=== PATIENT | female | born 1960 | race Caucasian/White ===

== ENCOUNTER 2017-08-25 03:31 | Observation (INO) | payer BC ==
[~2017-08-25] VITALS: Ht 170.2 cm; Wt 97.0 kg
[~2017-08-25 03:31] MED LIST: ADLT ASA LOW81 MG PO; ADULT ASPIRIN L81 MG PO; AMLODIPINE5 MG PO; AMOX/K CLAV875 M1 PO; AMOXICILLIN/CL875 MG PO; AUGMENTIN500TAB PO; AUGMENTIN875TAB OR; AUGMENTIN875TAB PO; BENZONATATE200 MG PO; CALCIUM600 M1 PO; CARAFATE1 GM PO; CHANTIX CONTINUI1 MG PO; CHANTIX STARTIN0.5 & PO; CIPRODEX1 ML OT; CORTISPORIN OTI10 ML AD; CORTISPORIN OTI10 ML AS; DIFLUCAN150 MG PO; DOXYCYCL HYC100 MG PO; FENOFIBRATE160 MG OR; FENOFIBRATE54 MG PO; FISH OIL1000 MG PO; FLONASE NASAL50 MCG; FOSTEUM PO; HYZAAR1 TA1 OR; HYZAAR1 TA2 PO; KEFLEX500 MG PO; LOPRESSOR 550 MG/TAB PO; LORTAB5 OR; MEDDOSEPAK PO; METFORMIN HCL1000 MG PO; METFORMIN850 MG PO; METOPROL TAR50 MG OR; METOPROL TAR50 MG PO; NORVASC2.5 M1 PO; OMEGA 3550 MG PO; OMEPRAZOLE20 MG PO; OMEPRAZOLE40 MG PO; PREDNISONE20 MG PO; RANITIDINE150 M1 PO; TOBRAMYCIN0.3 % OP; TRICOR145 MG PO; TRICOR48 MG PO; [UNRECOGNIZED DRUG - OTHER] PO
--- NOTE | 2017-08-25 03:33 | NUR ---
PT. TO ROOM 10 VIA AMBULATORYM WITH C/O CP AND FEELING LIKE HER HEART IS RACING. PT. PLACED ON SENIOR PIPING DESIGNER SHOWING SVT RATE 160'S. MD AT BEDSIDE. 0348 ADENOSINE 6 MG IVP GIVEN PER MD ORDER.
--- NOTE | 2017-08-25 03:50 | NUR ---
SCREW MACHINE OPERATOR SWISS TYPE NOW SHOWING ST. PT. STATES, " I FEEL BETTER NOW."
[2017-08-25 04:03] LABS: HEMOGLOBIN 16.2 g/dl (12.0-16.0); IMMATURE GRANULOCYTES 0.4 % (0.0-1.0); MEAN CELL VOLUME 83.2 fL CALC (80.0-100.0); MEAN CORPUSCULAR HGB CONC 32.4 g/L CALC (32.0-36.0); NEUT# 10.88 thou/uL (2.00-7.15); RED BLOOD COUNT 6.01 mill/uL (4.20-5.60); RED CELL DISTRI WIDTH 13.5 % (11.5-15.5)
[2017-08-25 04:04] LABS: URINE BILIRUBIN - DIPSTICK NEGATIVE (NEGATIVE); URINE BLOOD DIPSTICK TRACE-INTACT (NEGATIVE); URINE COLOR YELLOW; URINE GLUCOSE - DIPSTICK NEGATIVE (NEGATIVE); URINE KETONE NEGATIVE (NEGATIVE); URINE LEUK ESTERASE NEGATIVE (NEGATIVE); URINE NITRITE - DIPSTICK NEGATIVE (Negative); URINE PROTEIN - DIPSTICK NEGATIVE (NEG-TRACE); URINE SPECIFIC GRAVITY <=1.005; URINE UROBILINOGEN - DIPSTICK 0.2 E.U./dL (0.2)
[2017-08-25 04:05] LABS: URINE CLARITY CLEAR
[2017-08-25 04:09] LABS: BARBITURATES NEGATIVE (NEGATIVE); COCAINE NEGATIVE (NEGATIVE); METHADONE NEGATIVE (NEGATIVE); OXCYCODONE NEGATIVE (NEGATIVE); TETRAHYDROCANNABIONOL NEGATIVE (NEGATIVE); TRICYLIC ANTIDEPRESSANTS NEGATIVE (NEGATIVE)
--- NOTE | 2017-08-25 04:10 | NUR ---
po asa given as per md order.
[2017-08-25 04:12] LABS: ALKALINE PHOSPHATASE 122 u/l (38-126); ANION GAP 19 (6-22 (CALC)); BILIRUBIN, TOTAL 0.4 mg/dL (0.0-1.4); BUN 10 mg/dL (7-17); BUN/CREATININE RATIO 15 (12-20 (CALC)); CALCIUM 10.3 mg/dL (8.4-10.2); CARBON DIOXIDE 22 mmol/l (22-30); CHLORIDE 106 mmol/l (95-108); CREATININE 0.7 mg/dL (0.5-1.0); GFR > 60 ML/MIN (>=60 (CALC)); GFR FOR AFR.AMER. > 60 ML/MIN (>=60 (CALC)); GLUCOSE 156 mg/dL (65-105); LIPASE 125 u/l (23-300); POTASSIUM 3.5 mmol/l (3.5-5.1); SGOT/AST 30 u/l (14-36); SGPT/ALT 43 u/l (9-52); SODIUM 143 mmol/l (137-146)
--- NOTE | 2017-08-25 04:12 | NUR ---
PT. C/O CP AWARE.
--- NOTE | 2017-08-25 04:18 | NUR ---
IV PAIN MED AND NITROGLYCERIN OINT. GIVEN PER MD ORDER.
[2017-08-25 04:24] LABS: MYOGLOBIN 32 ng/mL (0 - 62)
--- NOTE | 2017-08-25 04:46 | NUR ---
IN ROOM TO DISCUSS CLINICAL FINDINGS WITH PT. AND , ALSO MADE PT. AWARE OF PENDING ADMISSION.
--- NOTE | 2017-08-25 04:57 | NUR ---
CP IS COMPLETLY RESOLVED OF THIS TIME.
--- NOTE | 2017-08-25 04:58 | NUR ---
Admission Note Report Given to: MARIPOSA TUTTLE Transported by: Wheelchair X Stretcher Transported with: X Nurse Transporter X Patent IV O2 X Distance Learning Coordinator
--- NOTE | 2017-08-25 04:59 | NUR ---
PT. TRANSFERED TO MS.
--- NOTE | 2017-08-25 05:10 | NUR ---
FROM ER TO MED/SURG VIA STRETCHER AND CLIENT RELATIONSHIP CONSULTANT, ON ROOM AIR, TELE IN PLACE, ACCOMPANIED BY MARGARITA EDEN RN. PT ABLE TO AMBULATE FROM STRETCHER TO STANDING SCALE, TO BRP, THEN TO BED, STEADY GAIT NOTED, VOIDED UPON ARRIVAL CLEAR YELLOW URINE, NO S/S OF DISTRESS NOTED, RESP ARE EVEN AND UNLABORED, C/O TENDER LEFT CHEST PAIN AT 1/10, NITRO PASTE TO LT UPPER CHEST, MEDICATED WITH LOPRESSOR UPON ARRIVAL, TEMP 97.7, HR 96, RR 18 EVEN AND UNLABORED, MANUAL BP 150/100 RT ARM SUPINE, WILL RECHECK IN AN HOUR, SPO2 97% ON ROOM AIR, EXPLAINED CALL CURRIE SYSTEM, SAFETY MEASURES ARE IN PLACE, EDUCATED ABOUT CARE PLAN AND MED SCHEDULE, VOICES UNDERSTANDING, CALL CURRIE AT REACH, AT BEDSIDE, HAS A 20G RAC SALINE LOCK AND FLUSHES WELL, NO REDNESS OR EDEMA NOTED. ASSESSMENT COMPLETED AT THIS TIME, SEE INTERVENTIONS FOR DETAILS. VINI HOSE & NONSKID SOCKS IN PLACE, FRESH WATER PROVIDED.
[2017-08-25 05:15] VITALS: BP 150/100
--- NOTE | 2017-08-25 06:20 | NUR ---
PT DENIES CHEST PAIN AT THIS TIME, MANUAL BP 135/70, DENIES ANY FEELING OF HEART RACING, RESP ARE EVEN AND UNLABORED, NO DISTRESS NOTED, AT BEDSIDE, NO ORDERS IN EMAR, WILL NOTIFY DR. DE LUNA. ENCOURAGED TO CALL IF NEEDED. VOICES UNDERSTANDING. SR WITH HR 79 AT THIS TIME PER BANQUET SERVER IN ER.
[2017-08-25] MEDS ORDERED: FENOFIBRATE145 MG PO (07:05)
--- NOTE | 2017-08-25 07:05 | NUR ---
REPORT RECEIVED FROM PARAG MONGE. PT SUPINE IN BED. DENIES CHEST PAIN AT THIS TIME. PLAN OF CARE DISCUSSED. REPORTING OF CONCERNS ENCOURAGED. CALL LIGHT REVIEWED AND IN REACH. PT'S AT BEDSIDE.
[2017-08-25 07:11] LABS: CHOLESTEROL HDL RATIO 4.5 (<4.4 (CALC)); HDL CHOLESTEROL 54 mg/dL (>=40); TOTAL CHOLESTEROL 246 mg/dl (0-199); TOTAL TRIGLYCERIDES 467 mg/dl (30-149); VLDL CHOLESTROL 93 mg/dl (2-49 (CALC))
[2017-08-25 07:15] VITALS: BP 124/80
[2017-08-25 07:42] LABS: TSH, 3RD GENERATION 4.25 uIU/mL (0.47 - 4.68)
--- NOTE | 2017-08-25 09:01 | NUR ---
ASSESMENT COMPLETED. PT. IS ALERT, ORIENTED, INDEPENDENT AND OBEYS COMMANDS. PT. PUPILS ARE EQUAL AND REACTIVE. FACE SYMMETRICAL AND SPEECH IS CLEAR. LUNG SOUNDS CLEAR, NO SIGNS OF RESPIRATORY DISTRESS, 02 IS 97% ON ROOM AIR. BOWEL SOUNDS X4. BRISK CAP REFILLS AND STRONG REFLEXES ON ALL EXTREMETIES. PT. HAS STRONG RADIAL AND PEDAL PULSES. NO EDEMA, KNEE HIGH VINI HOSE APPLIED TO BILATERAL LEGS. PT. SKIN IS CLEAR AND INTACT, HAS #20 GAUGE IV RAC, IV SITE IS FREE OF REDNESS AND SWELLING. BED IS IN LOWEST POSITION, SIDE RAILS UP, CALL LIGHT WITHIN REACH. PT. STATES NO CHEST PAIN AT THIS TIME, WILL CONTINUE MONITORING.
--- NOTE | 2017-08-25 10:45 | NUR ---
DR. NGO IN TO SEE PT. PLAN OF CARE UPDATED. PT STATES UNDERSTANDING. REPORTS "I JUST WANT TO GO HOME." DISCHARGE ORDER AND PROCESS REVIEWED, PT STATES UNDERSTANDING.
[2017-08-25 11:15] VITALS: BP 130/78
[2017-08-25 11:45] VITALS: BP 124/72
--- NOTE | 2017-08-25 12:10 | NUR ---
LAB IN TO DRAW TROPONIN AT THIS TIME.
[2017-08-25] MEDS ORDERED: LIPITOR10 M1 PO (14:51)
[2017-08-25] MEDS ORDERED: LOPID600 MG PO (14:51)
[2017-08-25] MEDS ORDERED: LOPRESSOR 550 MG/TAB PO (14:51)
== END 2017-08-25 15:15 | disposition home or self-care (01) | DRG 310 ==
LOC: ED 03:31 → ED-I 04:00 → ED 04:44 → MS2 04:45
PROVIDERS: Emergency Medicine; Internal Medicine; ADMIT Internal Medicine; ATTEND Internal Medicine
DX: I47.1 Supraventricular tachycardia (principal); I10 Essential (primary) hypertension; E83.42 Hypomagnesemia; E11.9 Type 2 diabetes mellitus without complications; E78.1 Pure hyperglyceridemia; E66.9 Obesity, unspecified; D72.829 Elevated white blood cell count, unspecified; K21.9 Gastro-esophageal reflux disease without esophagitis; G47.33 Obstructive sleep apnea (adult) (pediatric); R01.1 Cardiac murmur, unspecified; Z68.33 Body mass index [BMI] 33.0-33.9, adult; Z91.11 Patient's noncompliance with dietary regimen; Z79.84 Long term (current) use of oral hypoglycemic drugs; Z87.891 Personal history of nicotine dependence
CPT/HCPCS: G0378

== ENCOUNTER 2019-07-14 03:50 | Emergency (ER) | payer BC ==
[~2019-07-14] VITALS: Ht 170.2 cm; Wt 90.0 kg
[~2019-07-14 03:50] MED LIST changes: +FENOFIBRATE145 MG PO; +LIPITOR10 M1 PO; +LOPID600 MG PO
[2019-07-14] MEDS ORDERED: PANTOPRAZOLE SO40 M1 PO (04:14)
[2019-07-14] MEDS ORDERED: LOPID600 MG PO (04:14)
[2019-07-14] MEDS ORDERED: TOPROL XL50 MG PO (04:15)
[2019-07-14] MEDS ORDERED: ATORVASTATIN CA40 MG PO (04:15)
[2019-07-14] MEDS ORDERED: HYDROCHLOROT12.5 M1 PO (04:16)
[2019-07-14 04:44] LABS: IMMATURE GRANULOCYTES 0.4 % (0.0-5.0); MEAN CELL VOLUME 84.1 fL CALC (80.0-100.0); MEAN CORPUSCULAR HGB CONC 32.2 g/L CALC (32.0-36.0); NEUT# 6.98 thou/uL (2.00-7.15); RED BLOOD COUNT 4.77 mill/uL (4.20-5.60); RED CELL DISTRI WIDTH 13.9 % (11.5-15.5)
[2019-07-14 04:46] LABS: HEMATOCRIT 40.1 % (37.0-47.0); HEMOGLOBIN 12.9 g/dl (12.0-16.0)
[2019-07-14 04:47] LABS: URINE BILIRUBIN - DIPSTICK NEGATIVE (NEGATIVE); URINE BLOOD DIPSTICK NEGATIVE (NEGATIVE); URINE COLOR YELLOW; URINE GLUCOSE - DIPSTICK NEGATIVE (NEGATIVE); URINE KETONE NEGATIVE (NEGATIVE); URINE LEUK ESTERASE NEGATIVE (NEGATIVE); URINE NITRITE - DIPSTICK NEGATIVE (Negative); URINE PH 7.5 (4.5-8.0); URINE PROTEIN - DIPSTICK NEGATIVE (NEG-TRACE); URINE UROBILINOGEN - DIPSTICK 0.2 E.U./dL (0.2)
[2019-07-14 04:59] LABS: ALBUMIN 4.3 g/dL (3.2-5.0); ALKALINE PHOSPHATASE 134 u/l (38-126); AMYLASE 65 u/l (30-110); ANION GAP 11 (6-22 (CALC)); BILIRUBIN, TOTAL 0.5 mg/dL (0.0-1.4); BUN 9 mg/dL (7-17); BUN/CREATININE RATIO 17 (12-20 (CALC)); CHLORIDE 99 mmol/l (95-108); CREATININE 0.5 mg/dL (0.5-1.0); GFR > 60 ML/MIN (>=60 (CALC)); GFR FOR AFR.AMER. > 60 ML/MIN (>=60 (CALC)); LIPASE 120 u/l (23-300); POTASSIUM 3.5 mmol/l (3.5-5.1); SGOT/AST 19 u/l (14-36); SODIUM 138 mmol/l (137-146); TOTAL PROTEIN 7.2 g/dL (6.3-8.2)
[2019-07-14 05:06] LABS: CARBON DIOXIDE 32 mmol/l (22-30)
[2019-07-14 05:11] LABS: MYOGLOBIN 23 ng/mL (0 - 62)
[2019-07-14] MEDS ORDERED: ULTRAM50 M1 PO (06:55)
[2019-07-14] MEDS ORDERED: MEDDOSEPAK PO ×2 (06:55→07:13)
[2019-07-14 07:14] VITALS: BP 162/70
== END 2019-07-14 07:14 | disposition home or self-care (01) | DRG 552 ==
LOC: ED 03:50
PROVIDERS: Emergency Medicine
DX: M47.816 Spondylosis without myelopathy or radiculopathy, lumbar region (principal); J92.9 Pleural plaque without asbestos; E27.9 Disorder of adrenal gland, unspecified; I10 Essential (primary) hypertension; E11.9 Type 2 diabetes mellitus without complications; K21.9 Gastro-esophageal reflux disease without esophagitis; F17.210 Nicotine dependence, cigarettes, uncomplicated; Z79.84 Long term (current) use of oral hypoglycemic drugs
CPT/HCPCS: Q9967